=== PATIENT | female | born 1990 | race Caucasian/White ===

== ENCOUNTER 2018-01-23 03:03 | Day surgery (SDC) | payer OTHER ==
[~2018-01-23] VITALS: Ht 172.7 cm; Wt 63.0 kg
[~2018-01-23 03:03] MED LIST: ALPR-459 PO; AMIT-104 PO; AZI250 PO; ETHI1TAB26 PO; GUAI-334 PO; LISD20CA4 PO; NORE-74 PO; ONDA4TAB PO; OXYC-865 PO; PAN20 PO; PANT40SU3 PO
[2018-01-23 13:40] VITALS: BP 115/76
[2018-01-23] MEDS ORDERED: LIDOCAINE/SOD BICARB 8.4% SYR ID ONE (14:20)
[2018-01-23] MEDS ORDERED: CELECOXIB 200 MG CAP PO ONE (14:20)
[2018-01-23] MEDS ORDERED: FAMOTIDINE 20 MG TAB PO ONE (14:20)
[2018-01-23] MEDS ORDERED: NORMOSOL R SOLN(*) 1000 ML BAG 1,000 ML IV PRN (14:20)
[2018-01-23] MEDS ORDERED: ceFAZolin(*) 1 GM VIAL 1 GM in NS(*) 0.9% 100 ML ADDVANT BAG 100 ML IVPB ONE (14:20)
[2018-01-23] MEDS ORDERED: MIDAZOLAM 2 MG/2 ML VIAL IVP PRN (14:20)
[2018-01-23] MEDS ORDERED: ROPIVACAINE 0.2% 20 ML VIAL ONE (16:02)
[2018-01-23] MEDS ORDERED: fentaNYL CITR 100 MCG/2 ML AMP ONE (16:23)
[2018-01-23] MEDS ORDERED: ONDANSETRON 4 MG/2 ML VIAL ONE (17:34)
[2018-01-23] MEDS ORDERED: DEXAMETHASONE SOD PHOS 10MG/ML ONE (17:34)
[2018-01-23] MEDS ORDERED: PROPOFOL EMUL(*) 10MG/ML 20 ML 40 ML ONE (17:34)
[2018-01-23] MEDS ORDERED: NEOMYCIN/POLYMYX/BACITR 30 GM TP ONE (17:55)
[2018-01-23] MEDS ORDERED: HYDR-385 PO (18:37)
[2018-01-23] MEDS ORDERED: CEPH500T7 PO (18:38)
[2018-01-23 19:00] VITALS: BP 106/72
[2018-01-23 19:11] VITALS: BP 106/74
[2018-01-23 19:15] VITALS: BP 121/82
--- NOTE | 2018-01-23 20:39 | OPERATIVE REPORT 1 ---
EVENT DATE: January 23, 2018 SURGEON: Alejandro Chávez MD ANESTHESIOLOGIST: Edwin Spivey MD ANESTHESIA: General. BORE MILL OPERATOR FOR PLASTIC: Bacilio Ken PA-C PREOPERATIVE DIAGNOSIS Comminuted fracture of right long proximal phalanx. POSTOPERATIVE DIAGNOSIS Comminuted fracture of right long proximal phalanx. PROCEDURE PERFORMED Open reduction, internal fixation of right long proximal phalanx fracture. ESTIMATED BLOOD LOSS Minimal. INTRAVENOUS FLUIDS Crystalloid 500, no colloid. TOURNIQUET TIME 71 SPECIMENS No specimens. COMPLICATIONS No complications. IMPLANTS USED Medartis 1.5 mm screws times five for interfragmentary fixation, followed by neutralization plating using a 2 mm titanium plate with five screws. SUMMARY OF PROCEDURE The patient was brought into the operating room and placed on the OR table in the supine position with a hand table at her right side. After obtaining adequate general anesthesia, the right upper extremity was prepped and draped in the usual sterile fashion. The limb was exsanguinated, and the tourniquet was inflated to 250 mmHg. A longitudinal incision was made over the dorsal aspect of the long finger, deepened through skin and subcutaneous tissue. The tendon was exposed. There was already a hole in the tendon distally where the bone had pushed through, so we used this and exposed it proximally, after which the periosteum was divided to expose the fracture. We opened the fracture up through rotation and used a small curette to clean the interstices of the fracture to allow for reapposition. There was some comminution on the volar surface that would not allow for interdigitation, and this made me concerned about potential weakness with isolated interfragmentary fixation. We did use 1.5 mm screws with countersunk interfragmentary fixation to allow for anatomic apposition of the bone fragments. This was then checked with an x-ray to confirm that we had good position. It was anatomically reduced, but I did place a small titanium plate bridging all three fragments to allow us to go with early range of motion exercises. The screws for the plate were all locking. The wound was irrigated. We closed periosteum over the plate for 4-0 Vicryl, followed by repeat irrigation, and then closure of the tendon with 4-0 FiberWire. Finally, we let the tourniquet down, controlled bleeding with bipolar cautery, and closed skin with nylon. She was given a digital block, a dry, sterile dressing, and a volar splint. Then, she was awakened and transferred to the recovery room in stable condition. DULCE
== END 2018-01-23 19:00 | disposition home or self-care (01) ==
LOC: OR 03:03
PROVIDERS: ATTEND Orthopaedic Surgery Hand Surgery
DX: S62.642A Nondisplaced fracture of proximal phalanx of right middle finger, initial encounter for closed fracture (principal)
CPT/HCPCS: 26735; 81025; A4565; C1713; J0690; J1100; J2405; J2704; J2795; J3010; J7050